=== PATIENT | male | born 1955 | race Caucasian/White ===

== ENCOUNTER 2017-03-29 11:36 | Day surgery (SDC) | payer BC ==
[~2017-03-29] VITALS: Ht 177.8 cm; Wt 73.5 kg
[~2017-03-29 11:36] MED LIST: ESSENTIAL DAIL1 EACH PO; TYLENOL WITH C1 EACH PO
[2017-03-29 12:25] VITALS: BP 158/87
[2017-03-29] MEDS ORDERED: PERCOCET 5/31 TABLET PO (15:57)
[2017-03-29] MEDS ORDERED: COLACE100 MG PO (15:57)
[2017-03-29 17:00] VITALS: BP 168/72
[2017-03-29 18:20] VITALS: BP 148/62
[2017-03-29 18:55] VITALS: BP 158/85
== END 2017-03-29 19:20 | disposition home or self-care (01) ==
LOC: SDC 11:36
PROC: 0YU54JZ Supplement Right Inguinal Region with Synthetic Substitute, Percutaneous Endoscopic Approach (ICD-10-PCS; principal; 2017-03-29)
DX: K40.90 Unilateral inguinal hernia, without obstruction or gangrene, not specified as recurrent (principal); I44.0 Atrioventricular block, first degree; Z87.891 Personal history of nicotine dependence; Z82.5 Family history of asthma and other chronic lower respiratory diseases; Z80.1 Family history of malignant neoplasm of trachea, bronchus and lung
CPT/HCPCS: C1781; J0330; J0690; J1100; J1885; J2250; J2405; J2765; J3010